=== PATIENT | male | born 1960 | race Caucasian/White ===

== ENCOUNTER 2021-05-20 08:50 | Emergency (ER) | payer MEDICAID ==
[~2021-05-20] VITALS: Ht 182.9 cm; Wt 82.0 kg
[2021-05-20 09:35] LABS: BASOPHILS % 1.2 % (0.0-2.0); EOSINOPHILS % 1.9 % (0.0-5.0); HEMATOCRIT. 43.5 % (42.0-52.0); HEMOGLOBIN. 14.8 g/dL (14.0-18.0); LYMPHOCYTES % 30.7 % (20.0-50.0); MEAN CORPUSCULAR HEMOGLOBIN 32.4 pg (28.0-32.0); MEAN CORPUSCULAR VOLUME 95.3 fL (80.0-94.0); MEAN PLATELET VOLUME 7.6 fl (7.4-10.4); MONOCYTES % 8.4 % (2.0-8.0); NEUTROPHILS % 57.8 % (40.0-76.0); PLATELET 154 x1000/uL (130-400); RED BLOOD CELL COUNT 4.56 mill/uL (4.7-6.1); RED CELL DISTRIBUTION WIDTH 13.8 % (11.6-14.6)
[2021-05-20 09:39] LABS: CHLORIDE 100 mEq/L (98-107); PROTHROMBIN TIME 10.9 sec (9.6-11.0)
[2021-05-20 10:30] VITALS: BP 190/103
== END 2021-05-20 10:34 | disposition home or self-care (01) ==
LOC: ER 09:06
DX: R04.0 Epistaxis (principal); I10 Essential (primary) hypertension
CPT/HCPCS: 36415; 80053; 85025; 99283

== ENCOUNTER 2022-05-07 13:34 | Emergency (ER) | payer MEDICAID ==
[~2022-05-07] VITALS: Ht 167.6 cm; Wt 84.0 kg
[2022-05-07] MEDS ORDERED: TETANUS, DIPHTHERIA, PERTUSSIS VAC/PF 0.5ML (>10YR OLD) IM ONE (14:45)
[2022-05-07] MEDS ORDERED: KCL 10MEQ/50ML PREMIX 50 ML IV ONE ×2 (14:45)
[2022-05-07 14:56] LABS: EOSINOPHILS % 0.6 % (0.0-5.0); HEMATOCRIT. 41.9 % (42.0-52.0); HEMOGLOBIN. 15.1 g/dL (14.0-18.0); LYMPHOCYTES % 30.5 % (20.0-50.0); MEAN CORPUSCULAR HEMOGLOBIN 34.1 pg (28.0-32.0); MEAN CORPUSCULAR VOLUME 95.1 fL (80.0-94.0); MEAN PLATELET VOLUME 7.4 fl (7.4-10.4); NEUTROPHILS % 61.9 % (40.0-76.0); PLATELET 157 x1000/uL (130-400); RED BLOOD CELL COUNT 4.41 mill/uL (4.7-6.1); RED CELL DISTRIBUTION WIDTH 13.7 % (11.6-14.6)
[2022-05-07 15:17] LABS: CHLORIDE 101 mEq/L (98-107)
[2022-05-07 15:22] LABS: ETHANOL BLOOD 293 mg/dL
[2022-05-07 16:00] VITALS: BP 149/77
== END 2022-05-07 17:50 | disposition home or self-care (01) ==
LOC: ER 13:34
DX: S02.2XXA Fracture of nasal bones, initial encounter for closed fracture (principal); F10.129 Alcohol abuse with intoxication, unspecified; Y90.8 Blood alcohol level of 240 mg/100 ml or more; W01.0XXA Fall on same level from slipping, tripping and stumbling without subsequent striking against object, initial encounter; Y93.89 Activity, other specified; Y92.488 Other paved roadways as the place of occurrence of the external cause
CPT/HCPCS: 36415; 70450; 80053; 80320; 84484; 85025; 90471; 90715; 99284; J3480; G0480